=== PATIENT | female | born 1945 | race Caucasian/White ===

== ENCOUNTER → 2016-07-12 | Outpatient (CLI) | payer OTHER | LOC: FIMAGING 15:47 | DX: Z12.31 Encounter for screening mammogram for malignant neoplasm of breast (principal); Z85.3 Personal history of malignant neoplasm of breast | CPT/HCPCS: G0202-52 ==

== ENCOUNTER 2016-07-17 10:09 | Inpatient (IN) | payer OTHER ==
--- NOTE | 2016-07-17 11:10 | EDPHY ---
H & P Smoking Status: Never smoked HPI/ROS: Chief complaint. Hand pain HPI. 71-year-old female was gardening 2 days ago wearing gloves. She put her hand flat on the ground to help herself up. She felt a pop with the left hand at the base of the ring finger. She has been using ice and elevation. However she had some mild swelling yesterday and now today markedly swollen can't really extend her fingers hurts to move her fingers. It is very swollen and red. She is unaware of any cut or lesion that would cause an infection ROS Constitutional. no fever/chills, no weakness Eyes. no problems with vision ENT. no sore throat, no nasal drainage Cardiovascular. no chest pain Respiratory. no shortness of breath, no cough Abdominal. no abdominal pain, no nausea/vomiting, no diarrhea . no problems urinating MS. Left hand pain and swelling Skin. no rash Lymph. no swollen glands Neuro. no headache, no dizziness, no difficulty walking or with speech (Chris Mariscal) Past Medical/Surgical History: Dyslipidemia (Chris Mariscal) Social History: , nonsmoker, no alcohol (Chris Mariscal) Physical Exam: General Appearance: Alert well-developed female mild distress vital signs are stable Eyes: Pupils equal and round no pallor or injection. ENT, Mouth: Mucous membranes are moist. Respiratory: There are no retractions, lungs are clear to auscultation. Cardiovascular: Regular rate and rhythm. Gastrointestinal: Abdomen is soft and nontender, no masses, bowel sounds normal. Neurological: Awake and alert, sensory and motor exams grossly normal. Skin: Warm and dry, no rashes. Musculoskeletal: Neck is supple nontender. Extremities the left hand is swollen especially fingers 2 through 4. Erythema. Possible small puncture site at the base of the ring finger. She has exquisite pain with passive extension of her fingers. There is no lymphangitis. Psychiatric: Patient is oriented X 3, there is no agitation. (Chris Mariscal) Constitutional: Initial Vital Signs Temperature (C) 37.7 C 07/17/16 10:15 Heart Rate 67 07/17/16 10:15 Respiratory Rate 17 07/17/16 10:15 Blood Pressure 151/74 H 07/17/16 10:15 O2 Sat (%) 98 07/17/16 10:15 O2 Delivery Mode Room Air Allergies/Adverse Reactions: adenosine *RETIRED-08/22/11 [adenosine] Allergy (Severe, Verified 01/25/15 10:45 ) FAINTING iodine [Iodine] Allergy (Severe, Verified 01/25/15 10:45) "SHOCK" Penicillins Allergy (Severe, Verified 01/25/15 10:45) "SHOCK" fentanyl [Fentanyl] Allergy (Intermediate, Verified 01/25/15 10:45) Hives adenosine [Adenosine] Allergy (Mild, Verified 01/25/15 10:45) FAINTING dipyridamole [From Persantine] Allergy (Mild, Verified 01/25/15 10:45) FAINTING niacin [Niacin] Allergy (Mild, Verified 01/25/15 10:45) FAINTING Sulfa (Sulfonamide Antibiotics) Allergy (Mild, Verified 01/25/15 10:45) FAINTING MOLD Allergy (Mild, Uncoded 01/25/15 10:45) INCREASE SYMPTOMS OF MENIERE'S MUSHROOMS Allergy (Mild, Uncoded 01/25/15 10:45) INCREASES SYMPTOMS OF MENIERE'S ct dye Allergy (Uncoded 01/25/15 10:45) Home Medications: Medication Instructions Recorded Amitriptyline HCl [Elavil] 25 mg PO HS 04/04/13 Calcium Citrate/Vitamin D3 2 each PO BID@,04/04/13 [Calcium Citrate - Vit D3 Tab] Gabapentin [Neurontin 300 MG (RX)] 300 mg PO TIDMEAL 04/04/13 Guar Gum [Benefiber] 1 each PO DAILY 04/04/13 Levothyroxine [Synthroid 88 mcg 88 mcg PO DAILY06 04/04/13 (RX)] Seymour-3/Dha/Epa/Vit E [Systane 2 each PO BID@,04/04/13 Vitamin Softgel] hydrOXYzine HCL [Hydroxyzine HCl] 25 mg PO HS 04/04/13 Coq-10 200 mg PO HS 07/14/15 Elavil 25 mg PO HS 07/14/15 Lipitor 20 mg (RX) 20 mg PO HS 07/14/15 Magnesium PO BID 07/14/15 Miralax 17 gm (OTC) 17 PO DAILY06 07/14/15 Pred Forte 1% (RX) 1 drop RTEYE HS 07/14/15 Probiotic DAILY 07/14/15 Losartan Potassium 07/17/16 Medical Decision Making - Diagnostics Imaging: Imaging Impressions Hand X-Ray 07/17/16 10:27 Impression: Extensive dorsal soft tissue swelling with no acute osseous findings. Imaging Impressions Hand X-Ray 07/17/16 10:27 Impression: Extensive dorsal soft tissue swelling with no acute osseous findings. X-ray of the hand is interpreted by me as normal without fracture dislocation or foreign body. Significant soft tissue swelling is present (Chris Mariscal) Procedures: CHIEF COMPLAINT: Hand pain HISTORY OF PRESENT ILLNESS: Patient complains of left hand pain since Monday. She is working in the garden when she stood up pushing down with her hand. She felt a pop over the base of the 4th finger at the MCP joint. It was minimally painful time. She took her glove off and did not see any abnormality to it. She continued to work for the next couple of hours. When she stopped interval offer hand was significantly swollen. Since then she has had increasing swelling and pain in the hand. This is despite icing and elevating. She has also taking ibuprofen. She has no laceration or abrasion to the hand. The pain is now radiating up into the left elbow. She also has significant tension on the fingers and hand, numbness and tingling in the palm of the hand and most fingers. No sensory changes in the back of the hand. No injury elsewhere. No other associated complaints or modifying factors. REVIEW OF SYSTEMS: Ten systems reviewed and are negative unless otherwise noted in the HPI EXAMINATION General Appearance: Alert, no distress Cardiovascular: Regular rate. Pulses are symmetric radial 2+. There is sluggish cap refill on the left hand in all fingers. Neurological: A&O, nonfocal, normal gait. Strength is symmetric in both limbs. There is near anesthesia in the palm of the hand and in all fingers. Radial distribution is intact on the left hand. Skin: Warm and dry, no rash. Mild warmth to the entire left hand. No abscess , laceration, abrasions or contusions. Extremities: Significant tenderness to palpation on the palm of the left hand, all fingers of the left hand, and the dorsum of the hand. There is significant edema in the entire left hand. There is no edema or tenderness to palpation of the left forearm or elbow. Range of motion of the hand is intact but significantly painful. No wrist drop. Two-point sensation is not present on the left hand in any finger. Psychiatric: Mood and affect normal DIFFERENTIAL DIAGNOSES: Including but not limited to acute compartment syndrome, tenosynovitis, fracture , sprain, strain, hematoma MDM: 11:00 a.m. Significant hand pain edema on the left side. She does not have any signs of puncture laceration, but her examination is significantly edematous and tenosynovitis. I immediately consulted Dr. Mariscal to examine the patient. He has examined the patient and agrees. We will proceed with Hand consultation laboratory studies. 11:40 a.m. There has been difficulty obtaining IV access in the patient. They are continue to attempt with a butterfly needle at this time. 12:40 p.m. IV access has now been obtained. Lactic acid is elevated 2.3. We will provide IV fluid resuscitation, pain medication. I have also paged hand surgeon to discuss empiric antibiotic coverage in the interim. 12:55 p.m. I discussed the case with Dr. Packer. I have requested that he evaluate the patient in the emergency department. He informed me that he will do so. I have ordered IV vancomycin for empiric coverage. Lactic acid is elevated the remainder of her labs are pending. She is in no acute distress. She is not tachycardic, tachypneic or febrile. She is not hypotensive. 2:04 p.m. She is receiving her vancomycin IV at this time. She remains in no acute distress. Laboratory studies are unremarkable other than elevated lactic acid. We will recheck this after IV fluid. Still awaiting Hand surgery consultation. 2:[address] Packer has personally evaluated the patient in the emergency department. He will admit patient. We discussed hand cellulitis among his differential. He plans for admission with continue vancomycin and further care as indicated. She has been admitted stable condition to his service. SUPERVISION: Patient was evaluated in conjunction with the supervising physician. Please see their note for details. (Amanuel Minor) ED Course/Re-evaluation: Patient remained stable. IV access was difficult and we did get an IV in her hand. She is given vancomycin IV. I consulted and discussed case Dr. Packer, who comes to see the patient in the emergency department and agrees to the admission. Findings on lab and imaging studies are discussed with patient her . We discussed treatment plan including recommendation for admission. They expressed understanding and agreement (Chris Mariscal) Differential Diagnosis: I considered cellulitis, contusion, fracture, dislocation, insect bite, tenosynovitis (Chris Mariscal) - Data Points Laboratory Results: Laboratory Results 07/17/16 12:20 07/17/16 12:20 07/17/16 07/17/16 07/17/16 12:20 12:20 12:20 WBC 6.29 10^3/uL 10^3/uL (3.80-9.50) RBC 4.89 10^6/uL 10^6/uL (4.18-5.33) Hgb 15.0 g/dL g/dL (12.6-16.3) Hct 46.3 % % (38.0-47.0) MCV 94.7 fL fL (81.5-99.8) MCH 30.7 pg pg (27.9-34.1) MCHC 32.4 g/dL g/dL (32.4-36.7) RDW 13.2 % % (11.5-15.2) Plt Count 271 10^3/uL D 10^3/uL (150-400) MPV 9.1 fL fL (8.7-11.7) Neut % (Auto) 54.3 % % (39.3-74.2) Lymph % (Auto) 29.1 % % (15.0-45.0) [place] % (Auto) 10.3 % % (4.5-13.0) Eos % (Auto) 5.4 % % (0.6-7.6) Baso % (Auto) 0.6 % % (0.3-1.7) Nucleat RBC Rel Count 0.0 % % (0.0-0.2) Absolute Neuts (auto) 3.41 10^3/uL 10^3/uL (1.70-6.50) Absolute Lymphs (auto) 1.83 10^3/uL 10^3/uL (1.00-3.00) Absolute Monos (auto) 0.65 10^3/uL 10^3/uL (0.30-0.80) Absolute Eos (auto) 0.34 10^3/uL 10^3/uL (0.03-0.40) Absolute Basos (auto) 0.04 10^3/uL 10^3/uL (0.02-0.10) Absolute Nucleated RBC 0.00 10^3/uL 10^3/uL (0-0.01) Immature Gran % 0.3 % % (0.0-1.1) Immature Gran # 0.02 10^3/uL 10^3/uL (0.00-0.10) ESR 9 MM/HR MM/HR (0-30) VBG Lactic Acid 2.3 mmol/L H mmol/L (0.7-2.1) Sodium 144 mEq/L mEq/L (134-144) Potassium 5.1 mEq/L mEq/L (3.5-5.2) Chloride 106 mEq/L mEq/L (97-110) Carbon Dioxide 26 mEq/l mEq/l (22-31) Anion Gap 12 mEq/L mEq/L (8-16) BUN 13 mg/dL mg/dL (7-23) Creatinine 0.9 mg/dL mg/dL (0.6-1.0) Estimated GFR > 60 Glucose 63 mg/dL L mg/dL (70-100) Calcium 9.4 mg/dL mg/dL (8.5-10.4) C-Reactive Protein 6.4 mg/L mg/L (<10.0) Medications Given: Discontinued Medications Sodium Chloride (Ns) 1,000 mls @ 0 mls/hr IV ONCE ONE PRN Reason: Wide Open Stop: 07/17/16 12:46 Last Admin: 07/17/16 13:00 Dose: 1,000 mls Vancomycin/Sodium Chloride (Vancomycin 1 Gm (Premix)) 250 mls @ 250 mls/hr IV EDNOW ONE PRN Reason: Protocol Stop: 07/17/16 13:54 Last Admin: 07/17/16 13:26 Dose: 250 mls Ibuprofen (Motrin) 600 mg PO EDNOW ONE Stop: 07/17/16 13:27 Last Admin: 07/17/16 13:32 Dose: 600 mg Morphine Sulfate (Morphine) 4 mg IVP EDNOW ONE Stop: 07/17/16 12:46 Last Admin: 07/17/16 15:10 Dose: Not Given Ondansetron HCl (Zofran) 4 mg IVP EDNOW ONE Stop: 07/17/16 12:46 Last Admin: 07/17/16 15:10 Dose: Not Given Departure - Departure Disposition: [facility] Inpatient Acute Clinical Impression: Cellulitis of hand, left Condition: Good
[2016-07-17 12:37] LABS: % IMMATURE GRANULYOCYTES 0.3 % (0.0-1.1); ABSOLUTE IMMATURE GRANULOCYTES 0.02 10^3/uL (0.00-0.10); ADD DIFF? NO; ADD MORPH? NO; ADD SCAN? NO; ATYPICAL LYMPHOCYTE FLAG 10 (0-99); FRAGMENT RBC FLAG 0 (0-99); HEMATOCRIT 46.3 % (38.0-47.0); LEFT SHIFT FLG 0 (0-99); LIPEMIA HEMOLYSIS FLAG 80 (0-99); MEAN CELL HEMOGLOBIN 30.7 pg (27.9-34.1); MEAN CELL HEMOGLOBIN CONCENTR. 32.4 g/dL (32.4-36.7); MEAN CELL VOLUME 94.7 fL (81.5-99.8); MEAN PLATELET VOLUME 9.1 fL (8.7-11.7); PLATELET CLUMPS FLAG 20 (0-99); PLATELET COUNT 271 10^3/uL (150-400); RED BLOOD CELL COUNT 4.89 10^6/uL (4.18-5.33); RED CELL DISTRIBUTION WIDTH 13.2 % (11.5-15.2)
[2016-07-17] MEDS ORDERED: ALTEPLASE 2 MG VIAL IVP PRN (12:39)
[2016-07-17] MEDS ORDERED: ONDANSETRON 4 MG/2 ML VIAL IVP ONE (12:45)
[2016-07-17] MEDS ORDERED: NS 1,000 ML IV ONE (12:45)
[2016-07-17 12:46] LABS: SEDIMENTATION RATE 9 MM/HR (0-30)
[2016-07-17 12:51] LABS: ANION GAP 12 mEq/L (8-16); CALCIUM 9.4 mg/dL (8.5-10.4); CARBON DIOXIDE 26 mEq/l (22-31); CHLORIDE 106 mEq/L (97-110); CREATININE 0.9 mg/dL (0.6-1.0); GLOMERULAR FILTRATION RATE > 60; GLUCOSE 63 mg/dL (70-100); POTASSIUM 5.1 mEq/L (3.5-5.2); SODIUM 144 mEq/L (134-144)
[2016-07-17] MEDS ORDERED: VANCOMYCIN HCL/NORMAL SALINE 250 ML IV ONE (12:55)
[2016-07-17 13:02] LABS: C-REACTIVE PROTEIN 6.4 mg/L (<10.0)
[2016-07-17] MEDS ORDERED: IBUPROFEN 600 MG TAB PO ONE (13:26)
[2016-07-17 13:32] LABS: LACGHOST ORDER
[2016-07-17] MEDS ORDERED: ACETAMINOPHEN 325 MG TAB PO PRN (14:49)
[2016-07-17] MEDS ORDERED: TEMAZEPAM 15 MG CAP PO PRN (14:49)
[2016-07-17] MEDS ORDERED: HYDROCODONE/APAP 5/325 TAB PO PRN (14:49)
[2016-07-17] MEDS ORDERED: MAGNESIUM HYDROXIDE 30 ML UDCUP PO PRN (14:49)
[2016-07-17] MEDS ORDERED: POLYETHYLENE GLYCOL 3350 17 GM PKT PO PRN (14:49)
[2016-07-17] MEDS ORDERED: LACTULOSE 20 GM/30 ML UDCUP PO PRN (14:49)
[2016-07-17] MEDS ORDERED: BISACODYL 10 MG SUPP PR PRN (14:49)
[2016-07-17] MEDS ORDERED: VANCOMYCIN HCL/NORMAL SALINE 250 ML IV SCH ×2 (15:00→23:30)
[2016-07-17] MEDS ORDERED: D5W 1/2 NS W/ 20 KCl/L 1,000 ML IV SCH (15:00)
[2016-07-17] MEDS ORDERED: diphenhydrAMINE 25 MG CAP PO ONE (15:43)
--- NOTE | 2016-07-17 15:54 | GHP ---
[f rep st] HISTORY AND PHYSICAL DATE OF ADMISSION: 07/17/2016 CHIEF COMPLAINT: Left hand pain. HISTORY OF PRESENT ILLNESS: This is a 71-year-old female who was gardening 2 days ago while wearing gloves. She went to push herself up, had her hand on a rock. She had a sharp pain into the ring f anh, she did not think anything of. She took her glove off, did not notice any puncture wounds. Continued to work for another 4-5 hours in the garden, and when she took her glove off subsequent to that, she noted she was developing some swelling into the hand. She watched it yesterday, did not notice any symptomatology worsening or improving, however, today she noted it appeared to be worse, and she was starting to have pain. She was seen in the emergency room. ALLERGIES: Include adenosine, iodine, penicillins, fentanyl, Persantine, niacin, sulfa antibiotics, CT dye, mold and mushrooms. MEDICATIONS: Include amitriptyline, calcium citrate, gabapentin, Benefiber, Synthroid, multiple vit amins, hydroxyzine, Elavil, Lipitor, magnesium. PHYSICAL EXAMINATION: VITAL SIGNS: The patient has no fever, no chills. HEART: Regular rate and rhythm. ABDOMEN: Soft and nontender. She is clear to auscultation. LEFT UPPER EXTREMITY: Examin ation reveals her to have erythema on the dorsal and volar portions of the hand with surprising lack of warmth noted to the hand. She does have tenderness. She is able to actively move the fingers w ithout much pain. She does have some tenderness along the volar portion of the fingers, particularl y at the proximal phalanx of the ring finger, but not into the midportion of the palm. She does hav e some mild tenderness to passive extension across the digits, but it is not exquisite. PERTINENT LAB TESTS: Include a white blood cell count of 6.29, which is normal, and a C-reactive pr otein and erythrocyte sedimentation rate that is also normal. ASSESSMENT AND PLAN: The patient is status post left hand cellulitis with possible foreign body jaqui ction. She is to be admitted to the hospital, placed on IV antibiotics, and have an MRI of the hand to evaluate whether she has a foreign body at the volar portion of the proximal phalanx of the ring finger. /[id number]/MODL
--- NOTE | 2016-07-17 15:59 | GCON ---
[f rep st] CONSULTATION ER CONSULT REPORT DATE OF CONSULTATION: 07/17/2016 REASON FOR CONSULTATION: For complaints of left hand pain. HISTORY OF PRESENT ILLNESS: This is a 71-year-old female who was gardening 2 days ago while she was wearing gloves, went to push herself up on a stable rock when she felt a sharp pain at the ring fin mckenna. When taking off her glove, she did not notice any puncture wounds or any injury. She continue d to work for 3 or 4 more hours in the garden. Subsequent to this, she took the glove off and noted swelling on the hand. She watched it over Monday, but Monday, upon waking up, she noted she had increased swelling and pain. She was, therefore, seen in the emergency room. I was asked to see th e patient for further evaluation. PHYSICAL EXAM: The patient remains grossly neurologically intact. 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 She has some generalized erythema to the dorsal and volar portions of the hand but it is rela tively cool to touch. She does have some tenderness along the volar surface of the ring and middle finger, but she has only moderate tenderness to passive extension across the flexor tendon sheath. She does appear to have a small puncture wound along the volar side of the proximal phalanx of the r ing finger with no purulence and no specific erythema around that puncture site. IMAGING: X-ray exam reveals no gross bony deformity. ASSESSMENT AND PLAN: The patient is status post right hand cellulitis with possible foreign body re action. She is to be admitted, placed under IV antibiotics, and undergo an MRI of the hand to rule out a foreign body within the ring finger. /[id number]/MODL
[2016-07-17] MEDS: KETOROLAC 15 MG/1 ML SDV IVP SCH ×2 (19:13→20:05)
[2016-07-17] MEDS: traMADol 50 MG TAB PO SCH ×2 (19:13→20:05)
[2016-07-17] MEDS: VSL#3 1 EACH CAP PO SCH (20:04)
[2016-07-17] MEDS: prednisoLONE ACET 1% 5 ML OPHT.BTL RTEYE SCH (21:52)
[2016-07-17] MEDS: SENNOSIDES/DOCUSATE SODIUM TAB PO SCH (21:54)
[2016-07-17] MEDS: GABAPENTIN 300 MG CAP PO SCH (21:54)
[2016-07-17] MEDS: hydrOXYzine HCL 25 MG TAB PO SCH (21:54)
[2016-07-17] MEDS: ATORVASTATIN CALCIUM 20 MG TAB PO SCH (21:54)
[2016-07-17] MEDS: AMITRIPTYLINE HCL 25 MG TAB PO SCH (21:54)
[2016-07-18] MEDS: VANCOMYCIN HCL/NORMAL SALINE 250 ML IV SCH ×2 (00:42→12:11)
[2016-07-18] MEDS: KETOROLAC 15 MG/1 ML SDV IVP SCH ×3 (00:42→12:06)
[2016-07-18] MEDS: traMADol 50 MG TAB PO SCH ×4 (00:42→19:11)
[2016-07-18 02:24] LABS: % IMMATURE GRANULYOCYTES 0.1 % (0.0-1.1); ABSOLUTE IMMATURE GRANULOCYTES 0.01 10^3/uL (0.00-0.10); ADD DIFF? NO; ADD MORPH? NO; ADD SCAN? NO; ATYPICAL LYMPHOCYTE FLAG 0 (0-99); FRAGMENT RBC FLAG 0 (0-99); HEMATOCRIT 39.7 % (38.0-47.0); HEMOGLOBIN 13.1 g/dL (12.6-16.3); LEFT SHIFT FLG 0 (0-99); LIPEMIA HEMOLYSIS FLAG 80 (0-99); MEAN CELL VOLUME 94.1 fL (81.5-99.8); MEAN PLATELET VOLUME 8.8 fL (8.7-11.7); PLATELET CLUMPS FLAG 20 (0-99); PLATELET COUNT 226 10^3/uL (150-400); RED BLOOD CELL COUNT 4.22 10^6/uL (4.18-5.33); RED CELL DISTRIBUTION WIDTH 13.2 % (11.5-15.2)
[2016-07-18 04:19] LABS: SEDIMENTATION RATE 8 MM/HR (0-30)
[2016-07-18] MEDS: LEVOTHYROXINE 88 MCG TAB PO SCH (05:38)
[2016-07-18] MEDS: GABAPENTIN 300 MG CAP PO SCH ×3 (08:03→22:19)
[2016-07-18] MEDS: SENNOSIDES/DOCUSATE SODIUM TAB PO SCH ×2 (08:50→22:19)
[2016-07-18] MEDS ORDERED: BENEFIBER/NUTRISOURCE FIBER PKT 1 EACH PO SCH ×2 (09:00→18:00)
[2016-07-18] MEDS: VSL#3 1 EACH CAP PO SCH (10:13)
[2016-07-18] MEDS: POLYETHYLENE GLYCOL 3350 17 GM PKT PO SCH (10:14)
[2016-07-18] MEDS ORDERED: LOSARTAN POTASSIUM 25 MG TAB PO SCH (18:00)
[2016-07-18] MEDS ORDERED: diphenhydrAMINE 25 MG CAP PO PRN (22:10)
[2016-07-18] MEDS ORDERED: NAPROXEN SODIUM 220 MG TAB PO PRN (22:11)
[2016-07-18] MEDS: AMITRIPTYLINE HCL 25 MG TAB PO SCH (22:19)
[2016-07-18] MEDS: ATORVASTATIN CALCIUM 20 MG TAB PO SCH (22:19)
[2016-07-18] MEDS: hydrOXYzine HCL 25 MG TAB PO SCH (22:19)
[2016-07-18] MEDS: prednisoLONE ACET 1% 5 ML OPHT.BTL RTEYE SCH (22:20)
[2016-07-19] MEDS: traMADol 50 MG TAB PO SCH ×3 (00:02→13:21)
[2016-07-19] MEDS: VANCOMYCIN HCL/NORMAL SALINE 250 ML IV SCH ×2 (00:55→13:11)
[2016-07-19] MEDS: LEVOTHYROXINE 88 MCG TAB PO SCH (02:15)
[2016-07-19 03:50] LABS: % IMMATURE GRANULYOCYTES 0.3 % (0.0-1.1); ABSOLUTE IMMATURE GRANULOCYTES 0.02 10^3/uL (0.00-0.10); ADD DIFF? NO; ADD MORPH? NO; ADD SCAN? NO; ATYPICAL LYMPHOCYTE FLAG 10 (0-99); FRAGMENT RBC FLAG 10 (0-99); HEMATOCRIT 39.6 % (38.0-47.0); LEFT SHIFT FLG 0 (0-99); LIPEMIA HEMOLYSIS FLAG 80 (0-99); MEAN CELL HEMOGLOBIN 30.9 pg (27.9-34.1); MEAN CELL HEMOGLOBIN CONCENTR. 32.8 g/dL (32.4-36.7); MEAN CELL VOLUME 94.1 fL (81.5-99.8); MEAN PLATELET VOLUME 8.9 fL (8.7-11.7); PLATELET CLUMPS FLAG 0 (0-99); PLATELET COUNT 251 10^3/uL (150-400); RED BLOOD CELL COUNT 4.21 10^6/uL (4.18-5.33)
[2016-07-19 04:39] LABS: SEDIMENTATION RATE 9 MM/HR (0-30)
[2016-07-19] MEDS: POLYETHYLENE GLYCOL 3350 17 GM PKT PO SCH (08:11)
[2016-07-19] MEDS: VSL#3 1 EACH CAP PO SCH (08:11)
[2016-07-19] MEDS: SENNOSIDES/DOCUSATE SODIUM TAB PO SCH (08:12)
[2016-07-19] MEDS: GABAPENTIN 300 MG CAP PO SCH (08:12)
[2016-07-19 11:19] VITALS: BP 149/70; PULSE 73; RESP 18; TEMP 98.4; O2SAT 94
--- NOTE | 2016-07-19 12:23 | SOAPPROG ---
SOAP Progress Note Assessment/Plan: Assessment: Plan: d/c home with IV vanco 07/19/16 12:22 Subjective: Cellulitis improved, swelling reduced, redness reduced Objective: Vital Signs Temp Pulse Resp BP Pulse Ox 36.9 C 73 18 149/70 H 94 07/19/16 07:56 07/19/16 07:56 07/19/16 11:10 07/19/16 07:56 07/19/16 07:56 Laboratory Results 07/19/16 02:15 07/18/16 07/19/16 07/20/16 05:59 05:59 05:59 Intake Total 1520 1070 Balance 1520 1070 Pain improved, - Time Spent With Patient Time Spent With Patient: 10 - Pending Discharge Pending Discharge Within 24 Hours: Yes Pending Discharge Within 48 Hours: No Pending Discharge Date: 07/20/16 Pending Discharge Time: 11:00 ICD10 Worksheet Patient Problems: Problems Problem Status Onset Cellulitis of hand, left Acute Nephrolithiasis Acute
--- NOTE | 2016-07-19 12:30 | PDIAF ---
- Diagnosis Code Status: Full Code - Medication Management Discharge Medications: Medications to Continue on Transfer Amitriptyline HCl [Elavil] 25 mg PO HS 04/04/13 [Last Taken 07/16/16] Gabapentin [Neurontin 300 MG (*)] 300 mg PO 0800,1700,2100 04/04/13 [Last Taken 07/17/16 08:00] Guar Gum [Benefiber] 1 each PO DAILY 04/04/13 [Last Taken 07/17/16] Levothyroxine [Synthroid 88 mcg (*)] 88 mcg PO DAILY06 04/04/13 [Last Taken ] hydrOXYzine HCL [Hydroxyzine HCl] 25 mg PO HS 04/04/13 [Last Taken 07/16/16] Atorvastatin Calcium [Lipitor 20 mg (*)] 20 mg PO HS 07/17/16 [Last Taken ] C/E/Zn/Cu/OM3/DHA/EPA/LUT/ZEAX [Preservision Areds 2 Softgel] 1 each PO 0800, 1700 07/17/16 [Last Taken 07/17/16] Herbals/Supplements -Info Only 1 ea PO DAILY 07/17/16 [Last Taken Unknown] Lact Cmb2/S.thermophl/Bif Cmb1 [Vsl#3 Cap (*)] 2 each PO DAILY 07/17/16 [Last Taken 07/17/16] Losartan Potassium [Cozaar 25 mg (*)] 25 mg PO DAILY18 07/17/16 [Last Taken ] Polyethylene Glycol 3350 [Miralax 17 gm (*)] 17 gm PO DAILY 07/17/16 [Last Taken 07/17/16] prednisoLONE ACET 1% [Pred Forte 1% (*)] 1 drops RTEYE HS 07/17/16 [Last Taken 07/16/16] Vancomycin HCl/Normal Saline [Vancomycin 1 gm (Premix)] 1 gm IV Q12H #0 bag [Last Taken Unknown] Skilled Nursing Antibiotics: Vancyomycin 1 GM / 250 ML q 12 hours Skilled Nursing Antibiotic Stop Date: 07/24/16 Discharge Medications: Refer to the Discharge Home Medication list for PRN reason. PICC Care - Routine: Yes - Orders Services needed: Registered Nurse Home Care Face to Face: Yes Diet Recommendation: no restrictions on diet Diet Texture: Regular Texture Diet Pineda: Not applicable Additional: Pt will require PICC line training, for administratin of Vancomycin twice per day. - Follow Up Care Current Providers and Referrals: Nisa Lazo MD [Primary Care Provider] - As per Instructions
== END 2016-07-19 16:49 | disposition home health service (06) | DRG 603 ==
LOC: F3E 16:59
PROVIDERS: ADMIT Orthopaedic Surgery; ATTEND Orthopaedic Surgery
PROC: 02HV33Z Insertion of Infusion Device into Superior Vena Cava, Percutaneous Approach (ICD-10-PCS; principal; 2016-07-17)
DX: L03.114 Cellulitis of left upper limb (principal)
CPT/HCPCS: 86334-90; 96374; C1751; J1885; J3370

== ENCOUNTER → 2017-03-17 | Outpatient (CLI) | payer OTHER | LOC: CIMAGING 13:16 | PROVIDERS: ATTEND Internal Medicine | DX: R51 Headache (principal) | CPT/HCPCS: 70450-PO ==

== ENCOUNTER 2017-03-22 11:57 | Emergency (ER) | payer OTHER ==
--- NOTE | 2017-03-22 12:45 | EDPHY ---
H & P Smoking Status: Never smoked Time Seen by Provider: 03/22/17 12:37 HPI/ROS: CHIEF COMPLAINT: severe diarrhea HISTORY OF PRESENT ILLNESS: Patient is a history of Clostridium difficile diarrhea in the past after bowel surgery. She ate a salad yesterday at 2:00 p.m. when out with some friends and 2 hr later started having multiple episodes of profuse watery diarrhea. She has had about 30 bowel movements since then and has pretty severe epigastric and periumbilical crampy abdominal pain. Worse with diarrhea. She has been trying to drink oral fluids and has not been vomiting. No blood or melena in her diarrhea. No recent foreign travel to developing country. REVIEW OF SYSTEMS: Eye: no change in vision ENT: no sore throat Cardiac: no chest pain or syncope Pulmonary: no cough or SOB Abdomen: HPI Musculoskeletal: Continued pain unchanged from usual after multiple spine fusion Skin: no rash Neuro: Chronic headaches, saw her doctor yesterday for continued workup. Constitutional: no fever : no urinary symptoms A comprehensive 10 point review of systems is otherwise negative aside from elements mentioned in the history of present illness. 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 Hysterectomy, cervical fusion , colectomy for diverticulitis complicated by C diff colitis and pulmonary embolism. Spinal fusion. Cataract. Kidney stones. Hypothyroid, hypertension , chronic nerve pain. History of many years, hypercholesterolemia, TIA, bowel obstruction. Social history: Here with her . She is planning to leave early tomorrow morning to go visit family in [facility]. General Appearance: Alert and conversant, cooperative. Eyes: No scleral icterus. ENT, Mouth: Dry mucous membranes Respiratory: Normal respiratory effort, breath sounds equal, lungs are clear to auscultation. Cardiovascular: Regular rate and rhythm. Gastrointestinal: Epigastric and upper abdominal tenderness. No rebound or guarding. Neurological: Alert and oriented x3. Normally conversant. Face symmetric, normal movement and sensation in all extremities. Skin: Warm and dry, no rashes. Musculoskeletal: No peripheral edema and no joint swelling. Psychiatric: Not agitated. Emergency Department course/MDM: Plan for IV hydration, labs to include chemistry panel LFTs and lipase. Stool sample if she has diarrhea in the emergency department. I think that bowel obstruction is unlikely. 10 mg IV Reglan given. 1435: Still having abdominal pain, 0.5 mg IV Dilaudid and 4 mg IV Zofran given. Labs noted with CO2 at 18 consistent with dehydration, the slight elevation in bilirubin probable Gilbert's. The patient is clear that she would like to try and get symptomatic treatment and be discharged so she can visit her family tomorrow. She would prefer not to be admitted if possible. 1505: Abdomen soft and nontender, she feels better her medication, signed out to Dr. Martinez with plan for disposition depending on her clinical response to treatment. I think it is not likely she has an acute surgical problem. (Anthony Vázquez) I took over care of this patient at 3:00 p.m.. This patient is here for diarrhea. She is getting symptomatic treatment currently. She is hoping to go home if she is feeling better. Plan will be to reassess. Stool studies have been ordered. 4:10 p.m., patient re-evaluated. She is resting comfortably at this time. She states that she feels much better. She has not had any diarrhea in the emergency department. Although stool studies were ordered she is not produce any stool to send to our lab. She has had 1 L of IV normal saline. She is requesting discharge. I discussed the results of her blood work. I discussed my concerns regarding the bandemia seen on her CBC. On repeat abdominal exam she is soft, nontender nondistended. She states that she wants to go home but can easily return to the emergency department if her diarrhea and lower abdominal cramping return. Follow-up was discussed with her. Return to emergency department precautions thoroughly reviewed. All of her questions were answered. She was discharged in good condition with her . ( Igor Martinez) Constitutional: Initial Vital Signs Temperature (C) 36.5 C 03/22/17 12:09 Heart Rate 77 03/22/17 12:09 Respiratory Rate 16 03/22/17 12:09 Blood Pressure 139/66 H 03/22/17 12:09 O2 Sat (%) 98 03/22/17 12:09 O2 Delivery Mode Room Air Allergies/Adverse Reactions: adenosine *RETIRED-08/22/11 [adenosine] Allergy (Severe, Verified 01/25/15 10:45 ) FAINTING iodine [Iodine] Allergy (Severe, Verified 01/25/15 10:45) "SHOCK" Penicillins Allergy (Severe, Verified 01/25/15 10:45) "SHOCK" fentanyl [Fentanyl] Allergy (Intermediate, Verified 01/25/15 10:45) Hives adenosine [Adenosine] Allergy (Mild, Verified 01/25/15 10:45) FAINTING dipyridamole [From Persantine] Allergy (Mild, Verified 01/25/15 10:45) FAINTING niacin [Niacin] Allergy (Mild, Verified 01/25/15 10:45) FAINTING Sulfa (Sulfonamide Antibiotics) Allergy (Mild, Verified 01/25/15 10:45) FAINTING gluten Allergy (Verified 07/17/16 17:22) MOLD Allergy (Mild, Uncoded 01/25/15 10:45) INCREASE SYMPTOMS OF MENIERE'S MUSHROOMS Allergy (Mild, Uncoded 01/25/15 10:45) INCREASES SYMPTOMS OF MENIERE'S ct dye Allergy (Uncoded 01/25/15 10:45) Home Medications: Medication Instructions Recorded Amitriptyline HCl [Elavil] 25 mg PO HS 04/04/13 Gabapentin [Neurontin 300 MG (*)] 300 mg PO 0800,1700,2100 04/04/13 Guar Gum [Benefiber] 1 each PO DAILY 04/04/13 Levothyroxine [Synthroid 88 mcg 88 mcg PO DAILY06 04/04/13 (*)] hydrOXYzine HCL [Hydroxyzine HCl] 25 mg PO HS 04/04/13 Atorvastatin Calcium [Lipitor 20 20 mg PO HS 07/17/16 mg (*)] C/E/Zn/Cu/OM3/DHA/EPA/LUT/ZEAX 1 each PO 0800,1700 07/17/16 [Preservision Areds 2 Softgel] Herbals/Supplements -Info Only 1 ea PO DAILY 07/17/16 Lact Cmb2/S.thermophl/Bif Cmb1 2 each PO DAILY 07/17/16 [Vsl#3 Cap (*)] Losartan Potassium [Cozaar 25 mg 25 mg PO DAILY18 07/17/16 (*)] Polyethylene Glycol 3350 [Miralax 17 gm PO DAILY 07/17/16 17 gm (*)] prednisoLONE ACET 1% [Pred Forte 1 drops RTEYE HS 07/17/16 1% (*)] Amitriptyline HCl 03/22/17 Coq10 03/22/17 Hydroxyzine HCl 03/22/17 Ondansetron Odt [Zofran Odt 4 mg 4 mg PO Q4PRN PRN #10 tab 03/22/17 (*)] Medical Decision Making Differential Diagnosis: Differential considered including but not limited to infectious diarrhea, ischemic colitis, food poisoning , gastroenteritis, GI bleed (Anthony Vázquez) - Data Points Laboratory Results: Laboratory Results 03/22/17 13:55 03/22/17 13:55 03/22/17 03/22/17 13:55 13:55 WBC 4.85 10^3/uL 10^3/uL (3.80-9.50) RBC 4.58 10^6/uL 10^6/uL (4.18-5.33) Hgb 14.5 g/dL g/dL (12.6-16.3) Hct 42.6 % % (38.0-47.0) MCV 93.0 fL fL (81.5-99.8) MCH 31.7 pg pg (27.9-34.1) MCHC 34.0 g/dL g/dL (32.4-36.7) RDW 13.2 % % (11.5-15.2) Plt Count 237 10^3/uL 10^3/uL (150-400) MPV 9.4 fL fL (8.7-11.7) Neut % (Auto) Not Reported Lymph % (Auto) Not Reported [place] % (Auto) Not Reported Eos % (Auto) Not Reported Baso % (Auto) Not Reported Nucleat RBC Rel Count 0.0 % % (0.0-0.2) Absolute Neuts (auto) Not Reported Absolute Lymphs (auto) Not Reported Absolute Monos (auto) Not Reported Absolute Eos (auto) Not Reported Absolute Basos (auto) Not Reported Absolute Nucleated RBC 0.00 10^3/uL 10^3/uL (0-0.01) Immature Gran % Not Reported Seg Neutrophils % 16 % % Band Neutrophils % 36 % % Lymphocytes % 28 % % Monocytes % 19 % % Eosinophils % 1 % % Immature Gran # Not Reported Absolute Seg Neuts 0.78 10^/uL L 10^/uL (1.70-6.50) Absolute Band Neuts 1.75 10^3/uL H 10^3/uL (0.00-0.70) Absolute Lymphocytes 1.36 10^3/uL 10^3/uL (1.00-3.00) Absolute Monocytes 0.92 10^3/uL H 10^3/uL (0.30-0.80) Absolute Eosinophils 0.05 10^3/uL 10^3/uL (0.03-0.40) RBC/WBC/PLT Morphology NORMAL (NORMAL) Toxic Granulation PRESENT H Dohle Bodies PRESENT H Platelet Estimate ADEQUATE (ADEQ) Sodium 139 mEq/L mEq/L (134-144) Potassium 4.9 mEq/L mEq/L (3.5-5.2) Chloride 105 mEq/L mEq/L (97-110) Carbon Dioxide 18 mEq/l L mEq/l (22-31) Anion Gap 16 mEq/L mEq/L (8-16) BUN 29 mg/dL H mg/dL (7-23) Creatinine 0.9 mg/dL mg/dL (0.6-1.0) Estimated GFR > 60 Glucose 113 mg/dL H mg/dL (70-100) Calcium 9.1 mg/dL mg/dL (8.5-10.4) Total Bilirubin 2.5 mg/dL H mg/dL (0.1-1.4) Conjugated Bilirubin 0.3 mg/dL mg/dL (0.0-0.5) Unconjugated Bilirubin 2.2 mg/dL H mg/dL (0.0-1.1) AST 38 IU/L IU/L (14-46) ALT 29 IU/L IU/L (9-52) Alkaline Phosphatase 112 IU/L IU/L (38-126) Total Protein 6.6 g/dL g/dL (6.3-8.2) Albumin 3.9 g/dL g/dL (3.5-5.0) Lipase 32 IU/L IU/L (23-300) Specimen Hemolysis 169 Medications Given: Discontinued Medications Hydromorphone HCl (Dilaudid) 0.5 mg IVP EDNOW ONE Stop: 03/22/17 14:42 Last Admin: 03/22/17 14:48 Dose: 0.5 mg Sodium Chloride (Ns) 1,000 mls @ 0 mls/hr IV EDNOW ONE; Wide Open PRN Reason: Protocol Stop: 03/22/17 12:53 Last Admin: 03/22/17 14:00 Dose: 1,000 mls Metoclopramide HCl (Reglan Injection) 10 mg IVP EDNOW ONE Stop: 03/22/17 14:04 Last Admin: 03/22/17 14:06 Dose: 10 mg Ondansetron HCl (Zofran) 4 mg IVP EDNOW ONE Stop: 03/22/17 14:42 Last Admin: 03/22/17 14:48 Dose: 4 mg Departure - Departure Disposition: Home, Routine, Self-Care Clinical Impression: Dehydration Diarrhea Qualifiers: Diarrhea type: unspecified type Qualified Code(s): R19.7 - Diarrhea, unspecified Condition: Good Instructions: Dehydration (ED), Acute Diarrhea (ED) Additional Instructions: Read and follow provided instructions. Follow-up with your primary care physician in 1-2 days for re-evaluation. Take medication as prescribed for nausea if needed. Keep well hydrated. Drink lots of fluid. A good fluid to drink is Gatorade mixed with water in a 1-1 dilution. Return to the emergency department for worsening symptoms, worsening abdominal pain, return of persistent diarrhea, blood in your stool, vomiting or other serious concerns. Referrals: Nisa Lazo MD [Primary Care Provider] - As per Instructions Prescriptions: Ondansetron Odt [Zofran Odt 4 mg (*)] 4 mg PO Q4PRN PRN #10 tab PRN Reason: For Nausea & Vomiting
[2017-03-22] MEDS ORDERED: NS 1,000 ML IV ONE ×2 (12:52→14:32)
[2017-03-22] MEDS ORDERED: METOCLOPRAMIDE 10 MG/2 ML VIAL ONE (14:03)
[2017-03-22] MEDS ORDERED: METOCLOPRAMIDE 10 MG/2 ML VIAL IVP ONE (14:03)
[2017-03-22 14:10] LABS: ADD DIFF? YES; ADD MORPH? NO; ADD SCAN? YES; ATYPICAL LYMPHOCYTE FLAG 0 (0-99); FRAGMENT RBC FLAG 0 (0-99); HEMATOCRIT 42.6 % (38.0-47.0); HEMOGLOBIN 14.5 g/dL (12.6-16.3); LIPEMIA HEMOLYSIS FLAG 90 (0-99); MEAN CELL HEMOGLOBIN 31.7 pg (27.9-34.1); MEAN PLATELET VOLUME 9.4 fL (8.7-11.7); PLATELET CLUMPS FLAG 20 (0-99); PLATELET COUNT 237 10^3/uL (150-400); RED BLOOD CELL COUNT 4.58 10^6/uL (4.18-5.33); RED CELL DISTRIBUTION WIDTH 13.2 % (11.5-15.2)
[2017-03-22 14:13] LABS: LEFT SHIFT FLG 250 (0-99)
[2017-03-22 14:16] VITALS: PULSE 82; O2SAT 96
[2017-03-22 14:25] LABS: ALANINE AMINOTRANSFERASE 29 IU/L (9-52); ALBUMIN 3.9 g/dL (3.5-5.0); ALKALINE PHOSPHATASE 112 IU/L (38-126); ANION GAP 16 mEq/L (8-16); ASPARTATE AMINOTRANSFERASE 38 IU/L (14-46); BILIRUBIN,TOTAL 2.5 mg/dL (0.1-1.4); BILIRUBIN-CONJUGATED 0.3 mg/dL (0.0-0.5); BILIRUBIN-UNCONJUGATED 2.2 mg/dL (0.0-1.1); CALCIUM 9.1 mg/dL (8.5-10.4); CARBON DIOXIDE 18 mEq/l (22-31); CHLORIDE 105 mEq/L (97-110); CREATININE 0.9 mg/dL (0.6-1.0); GLOMERULAR FILTRATION RATE > 60; GLUCOSE 113 mg/dL (70-100); POTASSIUM 4.9 mEq/L (3.5-5.2); SODIUM 139 mEq/L (134-144); SPECIMEN HEMOLYSIS 169; TOTAL PROTEIN 6.6 g/dL (6.3-8.2)
[2017-03-22] MEDS ORDERED: ONDANSETRON 4 MG/2 ML VIAL IVP ONE (14:41)
[2017-03-22] MEDS ORDERED: HYDROmorphONE/DILAUDID 1 MG/ML INJ IVP ONE (14:41)
[2017-03-22 15:01] LABS: TOXIC GRANULATION PRESENT
[2017-03-22 15:02] LABS: PLATELET ESTIMATE ADEQUATE (ADEQ)
[2017-03-22 15:04] LABS: SCAN POSITIVE
[2017-03-22 16:06] VITALS: BP 137/62; RESP 16; TEMP 98.6
== END 2017-03-22 16:48 | disposition home or self-care (01) ==
DX: R19.7 Diarrhea, unspecified (principal); E86.0 Dehydration; E86.9 Volume depletion, unspecified; I10 Essential (primary) hypertension
CPT/HCPCS: 96361; 96374; 96375; 99284; J1170; J2405; J2765

== ENCOUNTER → 2017-07-13 | Outpatient (CLI) | payer OTHER | LOC: FIMAGING 13:28 | PROVIDERS: ATTEND Internal Medicine | DX: Z12.31 Encounter for screening mammogram for malignant neoplasm of breast (principal); Z90.11 Acquired absence of right breast and nipple; Z85.3 Personal history of malignant neoplasm of breast ==

== ENCOUNTER → 2017-08-08 | Outpatient (CLI) | payer OTHER | LOC: FIMAGING 08:21 | PROVIDERS: ATTEND Internal Medicine Gastroenterology | DX: Z09 Encounter for follow-up examination after completed treatment for conditions other than malignant neoplasm (principal); R19.2 Visible peristalsis ==

== ENCOUNTER 2017-12-01 17:20 | Emergency (ER) | payer OTHER ==
[2017-12-01] MEDS ORDERED: NS 1,000 ML IV ONE (17:45)
--- NOTE | 2017-12-01 18:58 | EDPHY ---
H & P Stated Complaint: abdominal pain Time Seen by Provider: 12/01/17 17:35 HPI/ROS: CHIEF COMPLAINT: Abdominal pain HISTORY OF PRESENT ILLNESS: This is a 72-year-old female with a complex past medical history of multiple abdominal surgeries who presents reporting well- localized, persistent, worsening pain in the right lower quadrant. Patient has had multiple abdominal surgeries including appendectomy and has a prior history of diverticulitis. She has a prior history of kidney stones. Patient states that this pain does not feel similar to either her kidney stones or diverticulitis. She indicates a focal area of pain in the right lower quadrant. Pain is better if she stands up or lays down, worse when she is sitting. No bloating. No distension. No nausea. No vomiting. No diarrhea. No back pain. No urinary complaints. Patient has not taken anything for the pain. She states she was in [place] today, shopping for [employer], and reported that the pain has become constant. Previous today the pain has been intermittent. Pain is described as sharp. No fever, chills, chest pain, shortness of breath, palpitations, vomiting, diarrhea, urinary complaints, headache, lightheadedness. REVIEW OF SYSTEMS: A comprehensive 10 system review of systems was reviewed and is otherwise negative aside from elements mentioned in the history of present illness. PAST MEDICAL HISTORY: Meniere's disease, irritable bowel, diverticulitis, fundoplication, hypothyroid, hyperlipidemia, breast CA, R mastectomy with reconstruction, IBS, TMJ, DJD, spinal stenosis, scoliosis, cervical, lumbar & sacral fusions, complete hysterectomy, tonsillectomy, appendectomy, colectomy, bowel obstruction, HTN, TIA, peripheral neuropathy, Gilbert's Disease, PE's, cataract surgery, kidney stone SOCIAL HISTORY: . Primary care physician is Dr. Lazo. Patient has been evaluated at [facility] previously. VITAL SIGNS Reviewed by me. GENERAL: Pleasant, Well-developed, well-nourished, increased discomfort when sitting or moving position. HEENT: Atraumatic. Eyes: No icterus, no injection. Mouth: moist mucous membranes. No erythema or lesions. Neck: supple with no adenopathy. LUNGS: Clear to auscultation bilaterally, no wheezes, rhonchi or rales. CARDIAC: Regular rate and rhythm, no rubs, murmurs or gallops. ABDOMEN: Soft, no distension. Focal area of tenderness in the right lower quadrant. No guarding or rebound. BACK: No CVA tenderness. EXTREMITIES: No trauma. No edema. Range of motion is normal throughout. NEURO: Alert and oriented, grossly nonfocal. SKIN: Warm and dry, no rash. PSYCHIATRIC: Normal mentation, no agitation. - Personal History Current Tetanus/Diphtheria Vaccine: Yes Current Tetanus Diphtheria and Acellular Pertussis (TDAP): Yes Tetanus Vaccine Date: 2011 - Medical/Surgical History Hx Asthma: No Hx Chronic Respiratory Disease: No Hx Diabetes: No Hx Cardiac Disease: No Hx Renal Disease: No Hx Cirrhosis: No Hx Alcoholism: No Hx HIV/AIDS: No Hx Splenectomy or Spleen Trauma: No Other PMH: heller muotomy with irene fundoplication, Meniere's, tinnitus, hypothyroid, hyperlipidemia, breast CA, R mastectomy with reconstruction, IBS, TMJ, DJD, spinal stenosis, scoliosis, cervical, lumbar & sacral fusions, complete hysterectomy, tosillectomy, appendectomy, colectomy, bowel obstruction , HTN, TIA, peripheral neuropathyiritis, Gilbert's Disease, PE's, cataract surgery, kidneyy stone. - Social History Smoking Status: Never smoked Constitutional: Initial Vital Signs Temperature (C) 36.6 C 12/01/17 17:20 Heart Rate 68 12/01/17 17:20 Respiratory Rate 14 12/01/17 17:20 Blood Pressure 162/82 H 12/01/17 17:20 O2 Sat (%) 98 12/01/17 17:20 O2 Delivery Mode Room Air Allergies/Adverse Reactions: adenosine *RETIRED-08/22/11 [adenosine] Allergy (Severe, Verified 01/25/15 10:45 ) FAINTING iodine [Iodine] Allergy (Severe, Verified 01/25/15 10:45) "SHOCK" Penicillins Allergy (Severe, Verified 01/25/15 10:45) "SHOCK" fentanyl [Fentanyl] Allergy (Intermediate, Verified 01/25/15 10:45) Hives adenosine [Adenosine] Allergy (Mild, Verified 01/25/15 10:45) FAINTING dipyridamole [From Persantine] Allergy (Mild, Verified 01/25/15 10:45) FAINTING niacin [Niacin] Allergy (Mild, Verified 01/25/15 10:45) FAINTING Sulfa (Sulfonamide Antibiotics) Allergy (Mild, Verified 01/25/15 10:45) FAINTING gluten Allergy (Verified 07/17/16 17:22) MOLD Allergy (Mild, Uncoded 01/25/15 10:45) INCREASE SYMPTOMS OF MENIERE'S MUSHROOMS Allergy (Mild, Uncoded 01/25/15 10:45) INCREASES SYMPTOMS OF MENIERE'S ct dye Allergy (Uncoded 01/25/15 10:45) Home Medications: Medication Instructions Recorded Amitriptyline HCl [Elavil] 25 mg PO HS 04/04/13 Gabapentin [Neurontin 300 MG (*)] 300 mg PO 0800,1700,2100 04/04/13 Guar Gum [Benefiber] 1 each PO DAILY 04/04/13 Levothyroxine [Synthroid 88 mcg 88 mcg PO DAILY06 04/04/13 (*)] Atorvastatin Calcium [Lipitor 20 20 mg PO HS 07/17/16 mg (*)] C/E/Zn/Cu/OM3/DHA/EPA/LUT/ZEAX 1 each PO 0800,1700 07/17/16 [Preservision Areds 2 Softgel] Herbals/Supplements -Info Only 1 ea PO DAILY 07/17/16 Lact Cmb2/S.thermophl/Bif Cmb1 2 each PO DAILY 07/17/16 [Vsl#3 Cap (*)] Losartan Potassium [Cozaar 25 mg 25 mg PO DAILY18 07/17/16 (*)] Polyethylene Glycol 3350 [Miralax 17 gm PO DAILY 07/17/16 17 gm (*)] prednisoLONE ACET 1% [Pred Forte 1 drops RTEYE HS 07/17/16 1% (*)] Coq10 03/22/17 Hydroxyzine HCl 03/22/17 HYDROmorphone HCL [Dilaudid 2 mg 2 mg PO Q4 PRN #10 tab 12/01/17 (*)] Medical Decision Making - Diagnostics Imaging Results: Imaging Impressions Abdomen/Pelvis CT 12/01/17 17:45 Impression: 1. Constipation, with rather prominent distention of the cecum, which may account for the patient's right lower quadrant symptomatology. Her appendix is surgically absent. 2. Gastric distention could reflect gastroparesis or possibly could be postoperative in origin. 3. See above report for additional findings. Results called and discussed with Rosey Laird M.D., on December 01, 2017 at 1912. ED Course/Re-evaluation: IV was placed. Patient received a L normal saline. CT scan without IV contrast was ordered as the patient reports a significant allergy to IV contrast. Laboratory evaluation: Normal white count. Electrolytes largely unremarkable. CT scan reported to me by Dr. Bourgeois as demonstrating significant stool with distension in the cecum. No signs of obstruction. Patient also has significant stool in the rectosigmoid region. I discussed the CT results with the patient. On return from CT scan she is more uncomfortable complaining of persistent, deep, achy, pain in the right lower quadrant. Patient received Toradol 30 mg, Valium, and Bentyl. Following this treatment patient would like to be discharged. She was offered admission to the hospital as she continues to be somewhat uncomfortable from pain. She would rather be discharged home. She was provided with a prescription for oral Dilaudid, the only narcotic which she can take, to use if needed for severe pain tonight. She understands that this can be constipating. She was discharged home with instructions regarding magnesium citrate. She will follow up with primary care physician if she does not have significant stool output and will return to the emergency department as needed. Differential Diagnosis: After obtaining the patient's history and performing an examination, differential diagnosis considered included but was not limited to cholecystitis , kidney stone, urinary tract infection, internal hernia, constipation. - Data Points Laboratory Results: Laboratory Results 12/01/17 18:10 12/01/17 12/01/17 12/01/17 18:18 18:10 18:10 WBC 5.98 10^3/uL 10^3/uL (3.80-9.50) RBC 4.74 10^6/uL 10^6/uL (4.18-5.33) Hgb 14.8 g/dL g/dL (12.6-16.3) Hct 45.5 % % (38.0-47.0) MCV 96.0 fL fL (81.5-99.8) MCH 31.2 pg pg (27.9-34.1) MCHC 32.5 g/dL g/dL (32.4-36.7) RDW 12.8 % % (11.5-15.2) Plt Count 271 10^3/uL 10^3/uL (150-400) MPV 9.1 fL fL (8.7-11.7) Neut % (Auto) 48.0 % % (39.3-74.2) Lymph % (Auto) 37.5 % % (15.0-45.0) [place] % (Auto) 10.0 % % (4.5-13.0) Eos % (Auto) 3.8 % % (0.6-7.6) Baso % (Auto) 0.5 % % (0.3-1.7) Nucleat RBC Rel Count 0.0 % % (0.0-0.2) Absolute Neuts (auto) 2.87 10^3/uL 10^3/uL (1.70-6.50) Absolute Lymphs (auto) 2.24 10^3/uL 10^3/uL (1.00-3.00) Absolute Monos (auto) 0.60 10^3/uL 10^3/uL (0.30-0.80) Absolute Eos (auto) 0.23 10^3/uL 10^3/uL (0.03-0.40) Absolute Basos (auto) 0.03 10^3/uL 10^3/uL (0.02-0.10) Absolute Nucleated RBC 0.00 10^3/uL 10^3/uL (0-0.01) Immature Gran % 0.2 % % (0.0-1.1) Immature Gran # 0.01 10^3/uL 10^3/uL (0.00-0.10) POC Sodium 140 mEq/L mEq/L (135-145) POC Potassium 3.5 mEq/L mEq/L (3.3-5.0) POC Chloride 100.0 mEq/L mEq/L (97-110) POC Total CO2 28 mEq/L mEq/L (22-31) POC BUN 12 mg/dL mg/dL (7-23) POC Creatinine 1.2 mg/dL H mg/dL (0.6-1.0) POC Glucose 90 mg/dL mg/dL (70-100) POC Calcium 9.2 mg/dL mg/dL (8.5-10.4) POC Total Bilirubin 1.7 mg/dL H mg/dL (0.1-1.4) POC AST 30 IU/L IU/L (14-46) POC ALT 23 IU/L IU/L (9-52) POC Alk Phosphatase 119 IU/L IU/L (38-126) POC Total Protein 6.8 g/dL g/dL (6.3-8.2) POC Albumin 3.6 g/dL g/dL (3.5-5.0) Urine Color YELLOW Urine Appearance HAZY Urine pH 6.0 (5.0-7.5) Ur Specific [place] 1.016 (1.002-1.030) Urine Protein NEGATIVE (NEGATIVE) Urine Ketones NEGATIVE (NEGATIVE) Urine Blood NEGATIVE (NEGATIVE) Urine Nitrate NEGATIVE (NEGATIVE) Urine Bilirubin NEGATIVE (NEGATIVE) Urine Urobilinogen NEGATIVE EU EU (0.2-1.0) Ur Leukocyte Esterase 2+ H (NEGATIVE) Urine RBC NONE SEEN /hpf /hpf (0-3) Urine WBC 3-5 /hpf H /hpf (0-3) Ur Epithelial Cells TRACE /lpf /lpf (NONE-1+) Urine Glucose NEGATIVE (NEGATIVE) Medications Given: Discontinued Medications Diazepam (Valium) 2.5 mg PO EDNOW ONE Stop: 12/01/17 19:32 Last Admin: 12/01/17 19:39 Dose: 2.5 mg Dicyclomine HCl (Bentyl) 20 mg PO EDNOW ONE Stop: 12/01/17 19:32 Last Admin: 12/01/17 19:39 Dose: 20 mg Sodium Chloride (Ns) 1,000 mls @ 0 mls/hr IV EDNOW ONE; Wide Open PRN Reason: Protocol Stop: 12/01/17 17:46 Last Admin: 12/01/17 18:24 Dose: 1,000 mls Ketorolac Tromethamine (Toradol) 30 mg IVP EDNOW ONE Stop: 12/01/17 19:32 Last Admin: 12/01/17 19:39 Dose: 30 mg Point of Care Test Results: Chemistry 12/01/17 18:18 POC Sodium 140 mEq/L mEq/L (135-145) POC Potassium 3.5 mEq/L mEq/L (3.3-5.0) POC Chloride 100.0 mEq/L mEq/L (97-110) POC Total CO2 28 mEq/L mEq/L (22-31) POC BUN 12 mg/dL mg/dL (7-23) POC Creatinine 1.2 mg/dL H mg/dL (0.6-1.0) POC Glucose 90 mg/dL mg/dL (70-100) POC Calcium 9.2 mg/dL mg/dL (8.5-10.4) POC Total Bilirubin 1.7 mg/dL H mg/dL (0.1-1.4) POC AST 30 IU/L IU/L (14-46) POC ALT 23 IU/L IU/L (9-52) POC Alk Phosphatase 119 IU/L IU/L (38-126) POC Total Protein 6.8 g/dL g/dL (6.3-8.2) POC Albumin 3.6 g/dL g/dL (3.5-5.0) Urine Dip Collection Date 12/01/17 Collection Time 18:04 Specific [place] (1.002-1.030) 1.020 PH (5.0-7.5) 6.0 Leukocytes (Negative) 1+ Nitrites (Negative) Negative Protein (Negative) Negative Glucose (Negative) Negative Ketones (Negative) Negative Urobilnogen (0.2-1.0 EU) 0.2 Bilirubin (Negative) Negative Blood (Negative) Negative Departure - Departure Disposition: Home, Routine, Self-Care Clinical Impression: cecal constipation Abdominal pain Qualifiers: Abdominal location: right lower quadrant Qualified Code(s): R10.31 - Right lower quadrant pain Condition: Good Instructions: Constipation (ED), Acute Abdominal Pain (ED), Obstipation (ED) Additional Instructions: For your constipation/obstipation I recommend the following: Obtain a bottle of magnesium citrate at the grocery store. Mix half of the magnesium citrate with 16 oz of Gatorade or other electrolyte solution. Drink this mixture and wait 3-4 hours. If you do not have significant stool output, please makes the remaining half of the bottle magnesium citrate with another 16 oz of Gatorade and drink this. I also recommend taking Dulcolax laxative at the same time. You do have some stool in the rectal and sigmoid area as. Using a suppository or a enema may help treat this area of constipation. If the above treatment does not provide significant bowel movements and relieve your abdominal discomfort, please contact Dr. Lazo. You may need to obtain as solution of GoLYTELY. Referrals: Nisa Lazo MD [Primary Care Provider] - As per Instructions Prescriptions: HYDROmorphone HCL [Dilaudid 2 mg (*)] 2 mg PO Q4 PRN #10 tab PRN Reason: Pain, Breakthrough
[2017-12-01 19:09] LABS: PLATELET COUNT 271 10^3/uL (150-400)
[2017-12-01 19:19] VITALS: BP 155/94
[2017-12-01] MEDS ORDERED: DIAZEPAM 5 MG TAB PO ONE (19:31)
[2017-12-01] MEDS ORDERED: KETOROLAC 30 MG/1 ML SDV IVP ONE (19:31)
[2017-12-01] MEDS ORDERED: DICYCLOMINE 10 MG CAP PO ONE (19:31)
== END 2017-12-01 20:00 | disposition home or self-care (01) ==
LOC: CED 17:20
DX: K59.00 Constipation, unspecified (principal); E86.9 Volume depletion, unspecified
CPT/HCPCS: 74176; 96361; 96374; 99285; J1885; 80053-PO

== ENCOUNTER 2017-12-25 18:34 | Emergency (ER) | payer OTHER ==
[2017-12-25] MEDS ORDERED: IBUPROFEN 200 MG TAB PO ONE (18:58)
--- NOTE | 2017-12-25 19:23 | EDPHY ---
H & P Stated Complaint: [facility] fall Time Seen by Provider: 12/25/17 18:49 HPI/ROS: CHIEF COMPLAINT: Right rib pain HISTORY OF PRESENT ILLNESS: This is a 72-year-old female with multiple medical problems who had a mechanical fall in her garage 4 hr prior to presentation. She landed prone with her right arm folded across her chest. She has had persistent right anterolateral rib cage pain since the fall. Pain is worsened with deep breathing. She did not strike her head and denies other injuries. She does not have neck pain, back pain, abdominal pain, or left-sided chest pain. She has not taken any pain medication REVIEW OF SYSTEMS: A ten system review of systems was performed and is negative with the exception of the items mentioned in the HPI. Past medical history: 1. Hypertension 2. PE 3. Meniere's 4. Kidney stone 5. Hyperlipidemia 6. Breast CA 7. IBS 8. Hypothyroidism 9. Gilbert's 10. DJD/spinal stenosis 11. TIA Past surgical history: 1. Mastectomy with reconstruction (right) 2. Fundiplication 3. Cervical, lumbar fusions 4. Colectomy 5. Appendectomy 6. Hysterectomy 7. Cataract surgery Social history: She is . She and her live independently. No tobacco. Retired. General Appearance: Alert. Vital signs reviewed. Head: Normocephalic, atraumatic. Eyes: Pupils equal and round, no conjunctival injection, no discharge. ENT, Mouth: Mucous membranes are moist, no oropharyngeal erythema or edema. No dental injury. Neck: Nontender to palpation of the cervical spine in the midline. Respiratory: Lungs are clear to auscultation; no wheezes, rales, or rhonchi. Thorax: No crepitus. Tender to palpation over the anterolateral lower right rib cage. Cardiovascular: Regular rate and rhythm; no murmur, rub, or gallop. Gastrointestinal: Abdomen is soft and nontender. Skin: Warm and dry, no rashes on exposed skin, normal color. No bruising. Back: Nontender to palpation over the thoracolumbar spine. Extremities: No long bone tenderness or deformity. Neurological: Alert and oriented. Moving all four extremities easily and equally. Psychiatric: Normal affect. - Personal History Current Tetanus/Diphtheria Vaccine: Yes Tetanus Vaccine Date: 2011 - Medical/Surgical History Hx Asthma: No Hx Chronic Respiratory Disease: No Hx Diabetes: No Hx Cardiac Disease: No Hx Renal Disease: No Hx Cirrhosis: No Hx Alcoholism: No Hx HIV/AIDS: No Hx Splenectomy or Spleen Trauma: No Other PMH: heller muotomy with irene fundoplication, Meniere's, tinnitus, hypothyroid, hyperlipidemia, breast CA, R mastectomy with reconstruction, IBS, TMJ, DJD, spinal stenosis, scoliosis, cervical, lumbar & sacral fusions, complete hysterectomy, tosillectomy, appendectomy, colectomy, bowel obstruction , HTN, TIA, peripheral neuropathyiritis, Gilbert's Disease, PE's, cataract surgery, kidneyy stone. - Social History Smoking Status: Never smoked Constitutional: Initial Vital Signs Temperature (C) 36.6 C 12/25/17 18:38 Heart Rate 70 12/25/17 18:38 Respiratory Rate 18 12/25/17 18:38 Blood Pressure 165/79 H 12/25/17 18:38 O2 Sat (%) 99 12/25/17 18:38 O2 Delivery Mode Room Air Allergies/Adverse Reactions: adenosine *RETIRED-08/22/11 [adenosine] Allergy (Severe, Verified 12/25/17 18:43 ) FAINTING iodine [Iodine] Allergy (Severe, Verified 12/25/17 18:43) "SHOCK" Penicillins Allergy (Severe, Verified 12/25/17 18:43) "SHOCK" fentanyl [Fentanyl] Allergy (Intermediate, Verified 12/25/17 18:43) Hives adenosine [Adenosine] Allergy (Mild, Verified 12/25/17 18:43) FAINTING dipyridamole [From Persantine] Allergy (Mild, Verified 12/25/17 18:43) FAINTING niacin [Niacin] Allergy (Mild, Verified 12/25/17 18:43) FAINTING Sulfa (Sulfonamide Antibiotics) Allergy (Mild, Verified 12/25/17 18:43) FAINTING gluten Allergy (Verified 12/25/17 18:43) MOLD Allergy (Mild, Uncoded 12/25/17 18:43) INCREASE SYMPTOMS OF MENIERE'S MUSHROOMS Allergy (Mild, Uncoded 12/25/17 18:43) INCREASES SYMPTOMS OF MENIERE'S ct dye Allergy (Uncoded 12/25/17 18:43) Home Medications: Medication Instructions Recorded Amitriptyline HCl [Elavil] 25 mg PO HS 04/04/13 Gabapentin [Neurontin 300 MG (*)] 300 mg PO 0800,1700,2100 04/04/13 Guar Gum [Benefiber] 1 each PO DAILY 04/04/13 Levothyroxine [Synthroid 88 mcg 88 mcg PO DAILY06 04/04/13 (*)] Atorvastatin Calcium [Lipitor 20 20 mg PO HS 07/17/16 mg (*)] C/E/Zn/Cu/OM3/DHA/EPA/LUT/ZEAX 1 each PO 0800,1700 07/17/16 [Preservision Areds 2 Softgel] Herbals/Supplements -Info Only 1 ea PO DAILY 07/17/16 Lact Cmb2/S.thermophl/Bif Cmb1 2 each PO DAILY 07/17/16 [Vsl#3 Cap (*)] Losartan Potassium [Cozaar 25 mg 25 mg PO DAILY18 07/17/16 (*)] Polyethylene Glycol 3350 [Miralax 17 gm PO DAILY 07/17/16 17 gm (*)] prednisoLONE ACET 1% [Pred Forte 1 drops RTEYE HS 07/17/16 1% (*)] Coq10 03/22/17 Hydroxyzine HCl 03/22/17 HYDROmorphone HCL [Dilaudid 2 mg 2 mg PO Q4 PRN #10 tab 12/01/17 (*)] Medical Decision Making ED Course/Re-evaluation: Fall with rib pain. CXR negative for obvious fracture, no pneumothorax. In discussion with patient , we have decided to forego dedicated rib series--as results won't change treatment. She understands that there could be an occult broken rib. She agreed to a dose of ibuprofen in the ED but does not want RX for pain medication. Danger signs reviewed with her. Differential Diagnosis: I considered a ddx that includes but is not limited to rib fracture, rib/chest contusion, pneumothorax, other injury including vertebral injury/arm or hand fracture, laceration. - Data Points Medications Given: Discontinued Medications Ibuprofen (Motrin) 400 mg PO EDNOW ONE Stop: 12/25/17 18:59 Last Admin: 12/25/17 19:10 Dose: 400 mg Departure - Departure Disposition: Home, Routine, Self-Care Clinical Impression: RIB INJURY Condition: Fair Instructions: Rib Fracture (ED) Additional Instructions: I am giving you information about rib fractures. As you know, we did not see a fracture on your chest x-ray. Sometimes they can be missed. The treatment is the same for a rib injury whether it is broken or not. The treatment is pain medication, time, and regular deep breathing. I recommend that you take 2 deep breaths every hour while awake, even if it hurts to do so. Take Aleve twice daily. You can take Tylenol 650 mg every 4 hr. Keep track of the Tylenol that you take and do not take more than 3000 mg of Tylenol in a 24 hr time period. If you develop shortness of breath, fever and cough, unbearable pain--you should be re-evaluated. Referrals: Nisa Lazo MD [Primary Care Provider] - As per Instructions
[2017-12-25 20:42] VITALS: BP 181/77
== END 2017-12-25 20:41 | disposition home or self-care (01) ==
DX: R07.81 Pleurodynia (principal); I10 Essential (primary) hypertension; E78.5 Hyperlipidemia, unspecified; W19.XXXA Unspecified fall, initial encounter; Y92.015 Private garage of single-family (private) house as the place of occurrence of the external cause

== ENCOUNTER → 2018-07-19 | Outpatient (CLI) | payer OTHER | LOC: FIMAGING 10:00 | PROVIDERS: ATTEND Internal Medicine | DX: Z12.31 Encounter for screening mammogram for malignant neoplasm of breast (principal); Z85.3 Personal history of malignant neoplasm of breast; Z90.11 Acquired absence of right breast and nipple ==

== ENCOUNTER → 2018-08-29 | Outpatient (CLI) | payer OTHER | LOC: FIMAGING 10:54 ==